=== PATIENT | female | born 1995 | race Caucasian/White ===

== ENCOUNTER 2024-02-19 10:36 | Inpatient (IN) | payer OTHER, SELFPAY ==
--- NOTE | ~2024-02-19 | US_ITS ---
EXAMINATION: US ABDOMEN LIMITED CLINICAL INFORMATION: Right upper quadrant pain with periportal edema seen on prior CT. COMPARISON: CT abdomen pelvis 02/19/2024: Periportal edema and trace of perihepatic ascites. Correlate with liver function tests. TECHNIQUE: Real-time imaging of the right upper quadrant abdominal viscera. FINDINGS: PANCREAS: The pancreas appears unremarkable, without masses or ductal dilatation, with the exception of the tail which is obscured by bowel gas. LIVER: The liver is normal in size. The liver contour is normal. Parenchymal echogenicity is normal. The periportal edema seen on the CT scan is not well appreciated on the ultrasound although a small amount can be seen centrally. There is no intrahepatic biliary duct dilatation seen. No focal hepatic lesion. GALLBLADDER: The gallbladder wall is thickened at 0.5 cm with fluid in the gallbladder wall and pericholecystic fluid present. Sanz's sign is positive. 2 gallbladder polyps are present the largest measuring 3 mm. No gallstones are seen. COMMON BILE DUCT: Normal in caliber measuring 0.2 cm in diameter. RIGHT KI FLAKITA: Normal. No hydronephrosis. No renal calculi or focal parenchymal lesions. The kidney measures 9.6 cm in maximum dimension. FREE FLUID: None. US/US abdomen limited IMPRESSION: 1. Gallbladder wall thickening with pericholecystic fluid and positive Sanz's sign. No gallstones are seen. Findings are suggestive of acalculous cholecystitis. HIDA scan may be of value. 2. Gallbladder polyps.
--- NOTE | ~2024-02-19 | CT_ITS ---
EXAMINATION: CT ABDOMEN AND PELVIS WITH CONTRAST CLINICAL INFORMATION: Abdominal pain, nausea vomiting and diarrhea, rectal bleeding. COMPARISON: None available. TECHNIQUE: Multidetector volumetric images were obtained from the superior aspect of the liver through the pubic symphysis following administration 85 mL of Omnipaque 350 intravenous contrast. Sagittal and coronal reformatted images were obtained on the technologist's workstation. Oral contrast: No This CT examination was performed using dose optimization techniques as appropriate, variously including the following: *Automated exposure control *Adjustment of mA and/or kV according to patient size (this includes techniques or standardized protocols for targeted exams where dose is matched to indication/reason for exam; i.e. extremities or head) *Use of iterative reconstruction technique DLP: 217 mGy-cm FINDINGS: LUNG BASES: The visualized lung bases are unremarkable. LIVER, GALLBLADDER, AND BILIARY TREE: There is periportal edema seen. There is no intrahepatic masses or ductal dilatation. There is trace of perihepatic ascites . The gallbladder is unremarkable there is trace of fluid surrounding the gallbladder as well. PANCREAS: Unremarkable. SPLEEN: There are subcapsular splenic low-attenuation lesions, possibly cysts. ADRENAL GLANDS: Unremarkable. KIDNEYS AND URETERS: The kidneys are normal in size, shape, and attenuation. No hydronephrosis, hydroureter, or calculi seen. No perinephric stranding. BLADDER: Unremarkable. GASTROINTESTINAL TRACT: Stomach is distended with no abnormal findings. Small bowel loops are not dilated. Colonic loops are normal. Appendix is not seen. ABDOMINAL WALL: No significant hernia is appreciated. LYMPH NODES: Normal. VASCULAR: Unremarkable. PELVIC VISCERA: Uterus is retroflexed there is IUD in the uterus. OSSEOUS STRUCTURES: Unremarkable. CT/CT abdomen pelvis w IV con IMPRESSION: 1. Periportal edema and trace of perihepatic ascites. Correlate with liver function tests. 2. Subcapsular splenic lesions, most likely cysts. Fleischner guidelines were followed.
[2024-02-19 10:46] VITALS: BP 129/82; PULSE 61; RESP 18; TEMP 36.5; O2SAT 100; BMI 17.0
[2024-02-19 10:58] LABS: Basophils Absolute Auto 0.1 X10*3/uL (0.0-0.2); Basophils Percent Auto 0.6 % (0-2); Eosinophils Percent Auto 0.1 % (0-4); Hematocrit 41.4 % (37.0-47.0); Hemoglobin 14.3 g/dl (12.0-16.0); Imm Gran Abs Auto 0.11 X10*3/uL (0.00-0.03); Imm Gran Pct Auto 0.6 % (0.0-0.4); Lymphocytes Absolute Auto 2.1 X10*3/uL (1.2-4.9); MANUAL DIFF FLAG NO; Mean Corpuscular HGB Conc 34.5 g/dl (31.0-35.0); Mean Corpuscular Hemoglobin 31.6 pg (27.0-33.0); Mean Corpuscular Volume 91.4 fL (80.0-98.0); Mean Platelet Volume 9.8 fL (9.4-12.3); Monocytes Absolute Auto 0.6 X10*3/uL (0.1-1.2); Monocytes Percent Auto 3.4 % (2-11); Neutrophils Absolute Auto 14.3 x10*3/uL (2.0-8.3); Neutrophils Percent Auto 83.3 % (45-73); Platelet Count 319 X10*3/uL (160-400); Red Blood Count 4.53 X10*6/uL (4.20-5.50); Red Cell Distribution Width 12.1 % (11.0-16.0); White Blood Count 17.2 X10*3/uL (4.8-10.8)
[2024-02-19 11:14] LABS: Alanine Aminotransferase 52 U/L (0-31); Albumin Level 4.9 g/dL (3.5-5.0); Alkaline Phosphatase 56 U/L (39-117); Anion Gap 16 (12-20); Aspartate Amino Transferase 36 U/L (5-31); Bilirubin Direct 0.4 mg/dL (0.0-0.5); Bilirubin Total 1.2 mg/dL (0.0-1.0); Blood Urea Nitrogen 11 mg/dL (9-16); Calcium 10.4 mg/dL (8.4-10.2); Carbon Dioxide 20 mmol/L (22-29); Chloride 107 mmol/L (96-108); Estimated Glomerular Filt Rate > 60; Glucose Random 126 mg/dL (60-115); Lipase 28 U/L (8-78); Potassium 3.2 mmol/L (3.3-5.1); Sodium 140 mmol/L (135-145); Total Protein 7.8 g/dL (6.5-8.0)
--- NOTE | 2024-02-19 11:43 | ED.NAVMDI ---
HPI - Nausea/Vomiting/Diarrhea General Chief complaint: Nausea/Vomiting/Diarrhea Stated complaint: vomiting quest alcohol poison Time Seen by Provider: 02/19/24 12:12 Source: patient, RN notes reviewed and old records reviewed Mode of arrival: ambulatory History of Present Illness ED Provider: Bridget Ricks PA-C HPI Narrative: 28-year-old female with no significant past medical history presenting to the ED complaining of upper abdominal pain, nausea, vomiting, and brbpr x this morning. Admits to drinking 2 alcoholic beverages last night, then woke up around 03:00AM with multiple episodes of vomiting. Denies fever, recent travel, sick contacts, dysuria/hematuria, other drug use MD elicited complaint: nausea, vomiting, diarrhea and abdominal pain Related Data Allergies Allergy/AdvReac Type Severity Reaction Status Date / Time No Known Allergies Allergy Verified 02/19/24 10:46 Review of Systems Review of Systems: Constitutional: No Fever, No Chills ENT/Mouth: No Ear Pain, No Nasal Congestion, No Sinus Pain, No Hoarseness, No sore throat, No Rhinorrhea, No Swallowing Difficulty Cardiovascular: No Chest Pain, No SOB Respiratory: No Cough, No Sputum, No Wheezing Gastrointestinal: + Nausea, + Vomiting, + Diarrhea, No Constipation, + Abdominal pain, +brbpr Genitourinary: No Dysuria, No Urinary Frequency, No Hematuria, No Flank Pain Musculoskeletal: No joint pain, No Myalgias, No Joint Swelling Skin: No Skin Lesions, No rash Neuro: No Weakness Yes all other systems are reviewed and are negative Constitutional: Constitutional: Reports as per [facility] Past Medical History Attestation statement: The following information was validated with the patient. Source: old records reviewed Social History Social History Smoked in Last 30 Days: No Use of substances other than those prescribed or required for medical reasons: Yes Substance Use Type: Marijuana Advance Directives: No Advance Directives Information Provided: No Physical Exam Vital Signs: Vital Signs: Last Vital Signs Temp 97.7 F 02/19/24 10:46 Pulse 61 02/19/24 10:46 Resp 18 02/19/24 10:46 BP 129/82 02/19/24 10:46 Pulse Ox 100 02/19/24 10:46 O2 Del Method Room Air 02/19/24 10:46 BMI result Body Mass Index 17.0 Const: Other: Appears uncomfortable General: cooperative and healthy appearing Orientation/consciousness: patient oriented x3 Limitations: no limitations HEENT: Head: Yes normal to inspection and Yes atraumatic Ears: hearing grossly normal bilaterally General nose exam: Normal external nose present Face and sinus: Yes normal facial exam Eyes: General: appearance normal, both eyes and all related structures EOM: EOMs intact bilaterally Neck: Neck: Yes normal visual inspection and Yes no meningeal signs Resp: Effort & Inspection: normal respiratory effort and no respiratory distress Auscultation: clear to auscultation bilaterally Cardio: Rate: regular rate Heart sounds: S1 normal heart sound present and S2 normal heart sound present GI: Inspection: Yes normal to inspection Palpation (GI): Soft to palpation, Tenderness to palpation present (GI) in the epigastrum; with no rebound tenderness, no guarding and not rigid Rectal Exam - Female: visual inspection normal : General: Yes no CVA tenderness Back/Spine/Pelvis: Back: no CVA tenderness Skin: Rashes: no rashes Wounds: no wounds Neuro: General: patient oriented x3, tone normal and no meningeal signs Cranial nerves: Yes CN's II-XII intact bilaterally Gait exam (Neuro): Normal gait present Extrem: General: Yes normal to inspection Course Course Course Narrative: This is a Rapid Medical Examination (RME) performed by Kristen Del Real PA-C in triage. Full HPI, ROS, assessment and treatment plan per primary provider in the Main ED. 28 y/o female with no medical history presents to the ER for evaluation of 10/10 diffuse upper abdominal pain associated with N/V that started at 2am. She drank 2 cocktails last night. Denies chance of , she has an IUD. She is in 10/10 pain and won't allow abd exam in triage. She is crying and in pain. Plan: labs, CT abd/pelvis, morphine and zofran ordered 1320--leukocytosis of 17.2 > likely reactive from nausea/vomiting. Still low suspicion for severe sepsis. > will obtain lactic and cultures -potassium mildly low to 3.2 > p.o. repletion ordered. AST/ALT mildly elevated. Labs otherwise reassuring. Ethanol negative -1508--UA negative, 40 ketones. Occult stool negative -lactic acid WNL CT abdomen pelvis w IV con IMPRESSION: 1. Periportal edema and trace of perihepatic ascites. Correlate with liver function tests. 2. Subcapsular splenic lesions, most likely cysts. Fleischner guidelines were followed. > 1600--on re-evaluation patient reports continued discomfort, slightly improved. On re-evaluation abdomen soft with continued epigastric/RUQ tenderness > will obtain ultrasound for further evaluation, give additional IVF and pain control 185--US abdomen limited IMPRESSION: 1. Gallbladder wall thickening with pericholecystic fluid and positive Sanz's sign. No gallstones are seen. Findings are suggestive of acalculous cholecystitis. HIDA scan may be of value. 2. Gallbladder polyps. > infection now suspected. IV Zosyn ordered. Will consult General surgery, Dr. Moore >plan is for admission. Medications Administered Discontinued Medications Generic Name Dose Route Start Last Admin Trade Name Freq PRN Reason Stop Dose Admin Al Hydroxide/Mg Hydroxide 30 ml 02/19/24 13:22 02/19/24 13:33 Magnesium Hydrox/Alum Hydrox 30 Ml Oral.Susp PO 02/19/24 13:23 30 ml ONCE ONE Administration Famotidine 20 mg 02/19/24 13:22 02/19/24 13:36 Famotidine/Pf 20 Mg/2 Ml Vial IVPUSH 02/19/24 13:23 20 mg ONCE ONE Administration Sodium Chloride 1,000 mls @ 999 mls/hr 02/19/24 12:00 02/19/24 12:57 Ns IVCONT 02/19/24 13:00 Infused .Q1H1M EBONY Infusion Sodium Chloride 1,000 mls @ 999 mls/hr 02/19/24 12:30 02/19/24 14:35 Ns IV 02/19/24 13:30 Infused .Q1H1M EBONY Infusion Sodium Chloride 1,000 mls @ 999 mls/hr 02/19/24 16:15 02/19/24 19:05 Ns IV 02/19/24 17:15 Infused .Q1H1M EBONY Infusion Iohexol 100 ml 02/19/24 12:49 02/19/24 12:50 Iohexol 350 Mg/Ml 100 Ml Infus..Btl IV 02/19/24 12:50 85 ml ONCE ONE Administration Lidocaine HCl 15 ml 02/19/24 13:22 02/19/24 13:33 Lidocaine Hcl Viscous 2 % 15 Ml Solution MUCOUS MEM 02/19/24 13:23 15 ml ONCE ONE Administration Lidocaine HCl 15 ml 02/19/24 17:37 02/19/24 18:06 Lidocaine Hcl Viscous 2 % 15 Ml Solution MUCOUS MEM 02/19/24 17:38 15 ml ONCE ONE Administration Metoclopramide HCl 10 mg 02/19/24 16:02 02/19/24 16:23 Metoclopramide Hcl 10 Mg/2 Ml Vial IVPUSH 02/19/24 16:03 10 mg ONCE ONE Administration Morphine Sulfate 4 mg 02/19/24 11:46 02/19/24 12:04 Morphine Sulfate 4 Mg/Ml Cartridge IVPUSH 02/19/24 11:47 4 mg ONCE ONE Administration Protocol Morphine Sulfate 2 mg 02/19/24 12:29 02/19/24 12:43 Morphine Sulfate 2 Mg/Ml Cartridge IVPUSH 02/19/24 12:30 2 mg ONCE ONE Administration Protocol Ondansetron HCl 4 mg 02/19/24 11:46 02/19/24 12:04 Ondansetron Hcl 4 Mg/2 Ml Vial IVPUSH 02/19/24 11:47 4 mg ONCE ONE Administration Potassium Chloride 60 meq 02/19/24 12:19 02/19/24 12:58 Potassium Chloride Er 20 Meq Tab.Er.Prt PO 02/19/24 12:20 60 meq ONCE ONE Administration Medical Decision Making Medical Decision Making [facility] Narrative: 28-year-old female with no significant past medical history presenting to the ED complaining of upper abdominal pain, nausea, vomiting, and brbpr x this morning. On exam VSS, NAD, appears uncomfortable, abdomen soft with epigastric tenderness, rectal exam WNL. Concern for pancreatitis vs cholecystitis/lithiasis vs alcohol poisoning vs metabolic abnormalities. Lower suspicion for [place] hives, appendicitis/diverticulitis, ovarian torsion. Low suspicion for severe sepsis at this time Plan: Labs, UA, CT AP, IVF, antiemetics, pain control, re-evaluate. Please refer to course for remaining clinical decision making, interpretation of labs/imaging results, and discussions with consultants and/or family members. Differential Diagnosis Differential Diagnoses: The differential diagnosis associated with the presentation includes As above Admission/Observation Consideration of admission/observation: Escalation of care including admission/observation considered Lab Data [facility] Lab Attestation statement: I reviewed the patient's lab results. 02/19/24 10:53 02/19/24 10:53 Labs: Lab Results 02/19/24 02/19/24 02/19/24 Range/Units 10:53 13:48 14:30 WBC 17.2 H (4.8-10.8) X10*3/uL RBC 4.53 (4.20-5.50) X10*6/uL Hgb 14.3 (12.0-16.0) g/dl Hct 41.4 (37.0-47.0) % MCV 91.4 (80.0-98.0) fL MCH 31.6 (27.0-33.0) pg MCHC 34.5 (31.0-35.0) g/dl RDW 12.1 (11.0-16.0) % Plt Count 319 (160-400) X10*3/uL MPV 9.8 (9.4-12.3) fL Immature Gran % (Auto) 0.6 H (0.0-0.4) % Neut % (Auto) 83.3 H (45-73) % Lymph % (Auto) 12.0 L (20-40) % [place] % (Auto) 3.4 (2-11) % Eos % (Auto) 0.1 (0-4) % Baso % (Auto) 0.6 (0-2) % Lymph # (Auto) 2.1 (1.2-4.9) X10*3/uL [place] # (Auto) 0.6 (0.1-1.2) X10*3/uL Eos # (Auto) 0.0 (0.0-0.4) X10*3/uL Baso # (Auto) 0.1 (0.0-0.2) X10*3/uL Abs Immat Gran (auto) 0.11 H (0.00-0.03) X10*3/uL Absolute Neuts (auto) 14.3 H (2.0-8.3) x10*3/uL Absolute Nucleated RBC 0.000 (0.0-0.012) X10*3/uL Nucleated RBC % (auto) 0.0 (0.0-0.2) /100WBC Sodium 140 (135-145) mmol/L Potassium 3.2 L (3.3-5.1) mmol/L Chloride 107 (96-108) mmol/L Carbon Dioxide 20 L (22-29) mmol/L Anion Gap 16 (12-20) BUN 11 (9-16) mg/dL Creatinine 0.81 (0.5-1.4) mg/dL Estim Creat Clear Calc 61.0 Estimated GFR > 60 Random Glucose 126 H (60-115) mg/dL Lactic Acid (0.5-2.0) mmol/L Calcium 10.4 H (8.4-10.2) mg/dL Magnesium 1.9 (1.6-2.6) mg/dL Total Bilirubin 1.2 H (0.0-1.0) mg/dL Direct Bilirubin 0.4 (0.0-0.5) mg/dL AST 36 H (5-31) U/L ALT 52 H (0-31) U/L Alkaline Phosphatase 56 (39-117) U/L Total Protein 7.8 (6.5-8.0) g/dL Albumin 4.9 (3.5-5.0) g/dL Lipase 28 (8-78) U/L Beta HCG, Quant < 2 mIU/mL Urine Color Urine Appearance Urine pH (5.0-9.0) Ur Specific [place] (1.005-1.025) Urine Protein (Neg-Trace) mg/dL Urine Glucose (UA) (Negative) mg/dL Urine Ketones (Negative) mg/dL Urine Blood (Negative) Urine Nitrite (Negative) Ur Leukocyte Esterase (Negative) Urine Test NEGATIVE (NEGATIVE) Stool Occult Blood NEGATIVE (NEGATIVE) Urine Opiates Screen POSITIVE H (Not Detect) Ur Buprenorphine Scrn Not Detected (Not Detect) ng/mL Ur Oxycodone Screen Not Detected (Not Detect) ng/mL Urine Methadone Screen Not Detected (Not Detect) ng/mL Urine Fentanyl Screen Not Detected (Not Detect) Ur Barbiturates Screen Not Detected (Not Detect) Ur Phencyclidine Scrn Not Detected (Not Detect) Ur Amphetamines Screen Not Detected (Not Detect) U Benzodiazepines Scrn Not Detected (Not Detect) Urine Cocaine Screen Not Detected (Not Detect) U Marijuana (THC) Screen POSITIVE H (Not Detect) Ethyl Alcohol < 10 mg/dL 02/19/24 02/19/24 Range/Units 14:32 15:00 WBC (4.8-10.8) X10*3/uL RBC (4.20-5.50) X10*6/uL Hgb (12.0-16.0) g/dl Hct (37.0-47.0) % MCV (80.0-98.0) fL MCH (27.0-33.0) pg MCHC (31.0-35.0) g/dl RDW (11.0-16.0) % Plt Count (160-400) X10*3/uL MPV (9.4-12.3) fL Immature Gran % (Auto) (0.0-0.4) % Neut % (Auto) (45-73) % Lymph % (Auto) (20-40) % [place] % (Auto) (2-11) % Eos % (Auto) (0-4) % Baso % (Auto) (0-2) % Lymph # (Auto) (1.2-4.9) X10*3/uL [place] # (Auto) (0.1-1.2) X10*3/uL Eos # (Auto) (0.0-0.4) X10*3/uL Baso # (Auto) (0.0-0.2) X10*3/uL Abs Immat Gran (auto) (0.00-0.03) X10*3/uL Absolute Neuts (auto) (2.0-8.3) x10*3/uL Absolute Nucleated RBC (0.0-0.012) X10*3/uL Nucleated RBC % (auto) (0.0-0.2) /100WBC Sodium (135-145) mmol/L Potassium (3.3-5.1) mmol/L Chloride (96-108) mmol/L Carbon Dioxide (22-29) mmol/L Anion Gap (12-20) BUN (9-16) mg/dL Creatinine (0.5-1.4) mg/dL Estim Creat Clear Calc Estimated GFR Random Glucose (60-115) mg/dL Lactic Acid 1.7 (0.5-2.0) mmol/L Calcium (8.4-10.2) mg/dL Magnesium (1.6-2.6) mg/dL Total Bilirubin (0.0-1.0) mg/dL Direct Bilirubin (0.0-0.5) mg/dL AST (5-31) U/L ALT (0-31) U/L Alkaline Phosphatase (39-117) U/L Total Protein (6.5-8.0) g/dL Albumin (3.5-5.0) g/dL Lipase (8-78) U/L Beta HCG, Quant mIU/mL Urine Color Yellow Urine Appearance Clear Urine pH 8.0 (5.0-9.0) Ur Specific [place] >= 1.030 H (1.005-1.025) Urine Protein Negative (Neg-Trace) mg/dL Urine Glucose (UA) Negative (Negative) mg/dL Urine Ketones 40 (Negative) mg/dL Urine Blood Negative (Negative) Urine Nitrite Negative (Negative) Ur Leukocyte Esterase Negative (Negative) Urine Test (NEGATIVE) Stool Occult Blood (NEGATIVE) Urine Opiates Screen (Not Detect) Ur Buprenorphine Scrn (Not Detect) ng/mL Ur Oxycodone Screen (Not Detect) ng/mL Urine Methadone Screen (Not Detect) ng/mL Urine Fentanyl Screen (Not Detect) Ur Barbiturates Screen (Not Detect) Ur Phencyclidine Scrn (Not Detect) Ur Amphetamines Screen (Not Detect) U Benzodiazepines Scrn (Not Detect) Urine Cocaine Screen (Not Detect) U Marijuana (THC) Screen (Not Detect) Ethyl Alcohol mg/dL Independent Interpretation I performed an independent interpretation of an: CT Scan Radiology Impression Discussion of test interpretation with radiology: I have reviewed the radiologist's reading. Independent Historian Clinical information obtained from an independent historian. History obtained from or confirmed by: Spouse External Record Review External record reviewed: Inpatient record, Office record, Outpatient record, Prior outpatient labs, Prior outpatient radiology, Primary care record and Outside ED record Tests considered The following testing was considered but not selected: As above Prescription Management I considered prescription management with: Pain Medication Critical Care Time Critical Care Time Critical Care Time: Yes Total Critical Care Time: 60 Attestation: I have personally provided critical care time exclusive of time spent on separately billable procedures. Time includes review of lab data, radiology results, discussion with consultants, and monitoring for potential decompensation. Intervention performed as documented. Discharge Plan Discharge Clinical Impression: Acute acalculous cholecystitis Patient Disposition: Admitted As Inpatient Print Language: Macedonian
[2024-02-19] MEDS: ondansetron HCL 4 MG/2 ML VIAL IVPUSH (12:04)
[2024-02-19] MEDS: Morphine Sulfate 4 MG/ML CARTRIDGE IVPUSH (12:04)
[2024-02-19] MEDS: 0.9 % Sodium Chloride 1,000 ML 999 ML IVCONT (12:04)
[2024-02-19 12:19] LABS: HCG Quantitative < 2 mIU/mL
[2024-02-19] MEDS: Morphine Sulfate 2 MG/ML CARTRIDGE IVPUSH (12:43)
[2024-02-19 12:48] LABS: Ethanol < 10 mg/dL; Magnesium 1.9 mg/dL (1.6-2.6)
[2024-02-19] MEDS: iohexoL 350 MG/ML 100 ML INFUS..BTL IV (12:50)
[2024-02-19] MEDS: Potassium Chloride ER 20 MEQ TAB.ER.PRT 60 MEQ PO (12:58)
[2024-02-19] MEDS: 0.9 % Sodium Chloride 1,000 ML 999 ML IV ×2 (12:59→16:20)
[2024-02-19] MEDS: Magnesium Hydrox/Alum Hydrox 30 ML ORAL.SUSP PO (13:33)
[2024-02-19] MEDS: Lidocaine HCl Viscous 2 % 15 ML SOLUTION MUCOUS MEM ×2 (13:33→18:06)
[2024-02-19] MEDS: Famotidine/PF 20 MG/2 ML VIAL IVPUSH (13:36)
[2024-02-19 13:57] LABS: OBS Int Ctl Valid YES; OBS1 NEGATIVE (NEGATIVE)
[2024-02-19 14:41] LABS: Appearance Urine Clear; Color Urine Yellow; Glucose Urine UA Negative (Negative); Leukocyte Esterase Urine Negative (Negative); Nitrite Urine Negative (Negative); Specific Gravity - Urine >= 1.030 (1.005-1.025); Urine Blood Negative (Negative); Urine Ketones 40 mg/dL (Negative); Urine Protein Negative (Neg-Trace)
[2024-02-19 14:43] LABS: UPreg QC Valid YES; Urine Pregnancy NEGATIVE (NEGATIVE)
[2024-02-19 15:22] LABS: Lactic Acid 1.7 mmol/L (0.5-2.0)
[2024-02-19 16:19] LABS: Amphetamine Screen Urine Not Detected (Not Detect); Barbiturates, Urine Not Detected (Not Detect); Benzodiazepines Screen Urine Not Detected (Not Detect); Buprenorphine Scr Not Detected (Not Detect); Cannabinoid Screen Urine POSITIVE (Not Detect); Cocaine Screen Urine Not Detected (Not Detect); Fentanyl, urine Not Detected (Not Detect); Methadone Screen, Urine Not Detected (Not Detect); Opiate Screen Urine POSITIVE (Not Detect); Oxycodone Screen Urine Not Detected (Not Detect); Phencyclidine Screen Urine Not Detected (Not Detect)
[2024-02-19] MEDS: Metoclopramide HCl 10 MG/2 ML VIAL IVPUSH (16:23)
--- NOTE | 2024-02-19 17:17 | PC.NURSE ---
third liter of fluids has infused. ultrasound at bedside
--- NOTE | 2024-02-19 19:04 | PC.NURSE ---
assumed care of pt at 1900
--- NOTE | 2024-02-19 19:08 | P.HPGS_ITS ---
History of Present Illness History of Present Illness Date of Service: 02/20/24 Chief complaint: abdominal pain Narrative: Ruba De La Cruz is a 28 year old female who comes into the emergency room complaining of epigastric pain severe and nausea and vomiting. She has never had pain like this before. Here in the emergency room she was noted to have right upper quadrant tenderness and ultrasound and a CT scan was carried out which shows thickening of the gallbladder wall some pericholecystic fluid [place] [address] and some LFTs are slightly elevated. No stones are noted however gall bladder polyps are seen. She denies any family history of gallbladder disease that she is aware of. She denies eating anything unusual and no other sick contacts Review of Systems Review of Systems: Yes all other systems are reviewed and are negative [facility] Social History Social History Patient Tobacco Use Status: Former Tobacco user Smoked in Last 30 Days: No Use of substances other than those prescribed or required for medical reasons: Yes Substance Use Type: Marijuana Advance Directives: No Advance Directives Information Provided: No Do you have a plan to hurt others: No Plan Nutrition Risks: No Nutritional Risk Meds Allergies Allergy/AdvReac Type Severity Reaction Status Date / Time No Known Allergies Allergy Verified 02/19/24 10:46 Active Medications: Current Medications Piperacillin Sod/Tazobactam (Sod 4.5 gm/ Sodium Chloride) 100 mls @ 200 mls/hr IV ONCE ONE Stop: 02/19/24 19:20 Home Medications ?Medication ?Instructions ?Recorded ?Confirmed ?Last Taken ?Type cholecalciferol (vitamin D3) 50 50 mcg PO DAILY 02/19/24 02/19/24 Unknown History mcg (2,000 unit) capsule Physical Exam Vital Signs: Vital Signs: Last Vital Signs Temp 97.7 F 02/19/24 10:46 Pulse 61 02/19/24 10:46 Resp 18 02/19/24 10:46 BP 129/82 02/19/24 10:46 Pulse Ox 100 02/19/24 10:46 O2 Del Method Room Air 02/19/24 10:46 BMI result Body Mass Index 17.0 Const: General: cooperative, healthy appearing, comfortable and acute distress mild Orientation/consciousness: patient oriented x3 Resp: Effort & Inspection: normal respiratory effort Auscultation: clear to auscultation bilaterally Cardio: Rate: regular rate Rhythm: regular rhythm Skin: Other: Nonicteric Neuro: General: patient oriented x3 Extrem: General: Yes normal to inspection Psych: Appearance: grossly normal Mental Status: mental status grossly normal Speech and movement: Normal speech and movement present Affect: normal affect Attitude: cooperative Thought process: Normal thought process present Thought content: Normal thought content present Insight: Good insight present (Psych) Judgement: Good judgement present (Psych) Results Results Labs: Short CBC 02/19/24 Range/Units 10:53 WBC 17.2 H (4.8-10.8) X10*3/uL Hgb 14.3 (12.0-16.0) g/dl Hct 41.4 (37.0-47.0) % Plt Count 319 (160-400) X10*3/uL BMP 02/19/24 10:53 Sodium 140 Potassium 3.2 L Chloride 107 Carbon Dioxide 20 L BUN 11 Creatinine 0.81 Calcium 10.4 H Liver Function 02/19/24 Range/Units 10:53 Total Bilirubin 1.2 H (0.0-1.0) mg/dL Direct Bilirubin 0.4 (0.0-0.5) mg/dL AST 36 H (5-31) U/L ALT 52 H (0-31) U/L Alkaline Phosphatase 56 (39-117) U/L Albumin 4.9 (3.5-5.0) g/dL Urine 02/19/24 02/19/24 Range/Units 14:30 14:32 Urine Color Yellow Urine Appearance Clear Urine pH 8.0 (5.0-9.0) Ur Specific [place] >= 1.030 H (1.005-1.025) Urine Protein Negative (Neg-Trace) mg/dL Urine Glucose (UA) Negative (Negative) mg/dL Urine Test NEGATIVE (NEGATIVE) Abdomen CT scan report/results: report reviewed and image reviewed CT scan - pelvis: report reviewed and image reviewed US - pelvic: report reviewed Additional studies: [address] [address] Ultrasound Report Signed Patient: Ruba De La Cruz MR#: [id number] : 1995 Acct:[id number] Age/Sex: 28 / F ADM Date: 02/19/24 Loc: HO.ED Attending Dr: Ordering Physician: Bridget Ricks Date of Service: 02/19/24 Procedure(s): US abdomen limited Accession Number(s): [id number] cc: Physician,None ; Bridget Ricks~ EXAMINATION: US ABDOMEN LIMITED CLINICAL INFORMATION: Right upper quadrant pain with periportal edema seen on prior CT. COMPARISON: CT abdomen pelvis 02/19/2024: Periportal edema and trace of perihepatic ascites. Correlate with liver function tests. TECHNIQUE: Real-time imaging of the right upper quadrant abdominal viscera. FINDINGS: PANCREAS: The pancreas appears unremarkable, without masses or ductal dilatation, with the exception of the tail which is obscured by bowel gas. LIVER: The liver is normal in size. The liver contour is normal. Parenchymal echogenicity is normal. The periportal edema seen on the CT scan is not well appreciated on the ultrasound although a small amount can be seen centrally. There is no intrahepatic biliary duct dilatation seen. No focal hepatic lesion. GALLBLADDER: The gallbladder wall is thickened at 0.5 cm with fluid in the gallbladder wall and pericholecystic fluid present. Sanz's sign is positive. 2 gallbladder polyps are present the largest measuring 3 mm. No gallstones are seen. COMMON BILE DUCT: Normal in caliber measuring 0.2 cm in diameter. RIGHT KI FLAKITA: Normal. No hydronephrosis. No renal calculi or focal parenchymal lesions. The kidney measures 9.6 cm in maximum dimension. FREE FLUID: None. US/US abdomen limited IMPRESSION: 1. Gallbladder wall thickening with pericholecystic fluid and positive Sanz's sign. No gallstones are seen. Findings are suggestive of acalculous cholecystitis. HIDA scan may be of value. 2. Gallbladder polyps. Dictated By: Girish Silva MD Signed By: <Electronically signed by Girish Silva MD in OV> 02/19/24 1840 Assessment and Plan (1) Acute acalculous cholecystitis: Status: Acute Plan 28-year-old female with epigastric right upper quadrant pain most likely with acalculous cholecystitis. Elevated white count. Plan to admit IV antibiotics and see how she does tomorrow. Repeat labs. She is saying however that she felt terrible and she never wants to feel like this again and is more adamant to get her gallbladder out during this admission. I think that this is reasonable but at this point plan to resuscitate correct her potassium and re-evaluate in the morning. She understands and agrees with the above plan Total time managing care of this patient today: 50 minutes. Quality Stroke Does the patient have a stroke diagnosis?: No VTE Prior VTE?: No VTE Risk Level:: Surgical - low VTE Device Contraindication: N/A - Device Ordered VTE Drug Contraindication: Treatment Not Indicated Procedures Date of Service Date of Service: 02/20/24
[2024-02-19] MEDS: Piperacillin Sodium/Tazobactam 3.375 GM in 0.9 % Sodium Chloride 50 ML IV (19:27)
[2024-02-19 19:31] VITALS: BP 114/68; PULSE 81; RESP 17; TEMP 37.4; O2SAT 97
--- NOTE | 2024-02-19 19:36 | PHA.MEDREC ---
Pharmacy Consult ? Medication Reconciliation Pharmacy has completed the medication reconciliation. Spoke to nursing who sent me pictures of OTC products the patient takes. Pt reports no prescription medications. Pt buys brand Hum vitamins ( [employer] probiotic, Here Comes the Sun vitamin D, [employer]ill herbal, and hormone Balance herbal) with various herbal supplements not able to be entered into medication summary except for vitamin D3. Pt aware that she would need to bring in in order to continue products in house.
[2024-02-19] MEDS: Potassium Chloride Packet 20 MEQ PACKET 40 MEQ PO (20:00)
[2024-02-19] MEDS: Lactated Ringers 1,000 ML 100 ML IVCONT (20:01)
[2024-02-19 22:11] VITALS: BP 110/66; PULSE 80; RESP 17; TEMP 37.2; O2SAT 97
[2024-02-20] VITALS (10 sets, daily range): BP systolic 101–137; BP diastolic 57–86; PULSE 65–80; RESP 16–18; TEMP 36.1–36.9; O2SAT 97–100; BMI 16.6
--- NOTE | 2024-02-20 01:23 | PC.NURSE ---
pt ambulatory to and from bathroom with a steady gait.
[2024-02-20] MEDS: Piperacillin Sodium/Tazobactam 3.375 GM in 0.9 % Sodium Chloride 50 ML IV ×3 (02:37→14:21)
[2024-02-20] MEDS: Lactated Ringers 1,000 ML 100 ML IVCONT (05:49)
[2024-02-20] MEDS: Ketorolac Tromethamine 30 MG/ML VIAL 15 MG IVPUSH (08:24)
--- NOTE | 2024-02-20 09:50 | PC.NURSE ---
patient is alert and oriented x3, family at [facility], patient medicated per MAR. VSS, respirations equal and unlabored, skin dry and intact. patient is receiving 100ml / hr LR. currently NPO awaiting surg consult
[2024-02-20 11:00] LABS: MANUAL DIFF FLAG NO
[2024-02-20 11:01] LABS: Basophils Absolute Auto 0.1 X10*3/uL (0.0-0.2); Basophils Percent Auto 0.5 % (0-2); Eosinophils Percent Auto 0.1 % (0-4); Hematocrit 33.4 % (37.0-47.0); Hemoglobin 11.7 g/dl (12.0-16.0); Imm Gran Abs Auto 0.04 X10*3/uL (0.00-0.03); Imm Gran Pct Auto 0.3 % (0.0-0.4); Lymphocytes Absolute Auto 2.3 X10*3/uL (1.2-4.9); Lymphocytes Percent Auto 19.1 % (20-40); Mean Corpuscular Hemoglobin 32.7 pg (27.0-33.0); Mean Corpuscular Volume 93.3 fL (80.0-98.0); Mean Platelet Volume 9.7 fL (9.4-12.3); Monocytes Absolute Auto 1.1 X10*3/uL (0.1-1.2); Monocytes Percent Auto 8.7 % (2-11); Neutrophils Absolute Auto 8.7 x10*3/uL (2.0-8.3); Neutrophils Percent Auto 71.3 % (45-73); Platelet Count 219 X10*3/uL (160-400); Red Blood Count 3.58 X10*6/uL (4.20-5.50); Red Cell Distribution Width 12.4 % (11.0-16.0); White Blood Count 12.2 X10*3/uL (4.8-10.8)
[2024-02-20 11:28] LABS: Alanine Aminotransferase 42 U/L (0-31); Albumin Level 3.6 g/dL (3.5-5.0); Alkaline Phosphatase 38 U/L (39-117); Anion Gap 12 (12-20); Aspartate Amino Transferase 29 U/L (5-31); Bilirubin Total 2.3 mg/dL (0.0-1.0); Blood Urea Nitrogen 8 mg/dL (9-16); Calcium 8.8 mg/dL (8.4-10.2); Carbon Dioxide 22 mmol/L (22-29); Chloride 110 mmol/L (96-108); Creatinine Clr Calc Pharmacy 66.8; Estimated Glomerular Filt Rate > 60; Glucose Random 76 mg/dL (60-115); Potassium 3.6 mmol/L (3.3-5.1); Sodium 140 mmol/L (135-145); Total Protein 5.7 g/dL (6.5-8.0)
--- NOTE | 2024-02-20 12:20 | PM.PNGS ---
Subjective Subjective Date of Service: 02/20/24 Interval history: Patient feeling better but still some soreness in the epigastric area she has been NPO. She is stating that she is concerned that she has not been able to eat before and that she felt sick and she has been having issues with her weight so she really wants to be able to eat and gain some weight. She is determined to have the surgery today Physical Exam Vital Signs: Vital Signs: Last Vital Signs Temp 98.5 F 02/20/24 07:25 Pulse 67 02/20/24 07:25 Resp 16 02/20/24 07:25 BP 106/60 02/20/24 07:25 Pulse Ox 99 02/20/24 07:25 O2 Del Method Room Air 02/20/24 07:25 BMI result Body Mass Index 17.0 Const: General: cooperative, healthy appearing and comfortable Resp: Effort & Inspection: normal respiratory effort Auscultation: clear to auscultation bilaterally Cardio: Rate: regular rate Rhythm: regular rhythm GI: Other: Abdomen is soft nondistended mild tenderness in the epigastric area no CVA tenderness mild guarding no rebound no peritoneal signs Skin: Other: Nonicteric Objective Data Active Medications Piperacillin Sod/Tazobactam (Sod 3.375 gm/ Sodium Chloride) 50 mls @ 100 mls/hr IV Q6H [facility] Last Infusion: 02/20/24 08:26 Dose: Infused Documented By: SAMANTHA Lactated Ringer's (Lr) 1,000 mls @ 100 mls/hr IVCONT .Q10H [facility] Last Admin: 02/20/24 05:49 Dose: 100 mls/hr Documented By: KATHE Ketorolac Tromethamine (Ketorolac Tromethamine 30 Mg/Ml Vial) 15 mg IVPUSH Q6H PRN PRN Reason: Pain, Moderate(Pain Scale 4-6) Stop: 02/24/24 19:02 Last Admin: 02/20/24 08:24 Dose: 15 mg Documented By: SAMANTHA Morphine Sulfate (Morphine Sulfate 4 Mg/Ml Cartridge) 3 mg IVPUSH Q4H PRN; Protocol PRN Reason: Pain, Severe (Pain Scale 7-10) Ondansetron HCl (Ondansetron Hcl 4 Mg/2 Ml Vial) 4 mg IVPUSH Q8H PRN PRN Reason: Nausea and Vomiting Sodium Chloride (0.9 % Sodium Chloride Flush 3 Ml Syringe) 3 ml IVFLUSH QSHIFT EBONY Last Admin: 02/20/24 07:46 Dose: Not Given Documented By: SAMANTHA Non-Admin Reason: IV Running Labs 02/20/24 10:56 02/20/24 10:56 Labs: Laboratory Results - last 24 hr 02/19/24 02/19/24 02/19/24 10:53 13:48 14:30 MCV MCH MCHC RDW Plt Count MPV Immature Gran % (Auto) Neut % (Auto) Lymph % (Auto) [place] % (Auto) Eos % (Auto) Baso % (Auto) Lymph # (Auto) [place] # (Auto) Eos # (Auto) Baso # (Auto) Abs Immat Gran (auto) Absolute Neuts (auto) Absolute Nucleated RBC Nucleated RBC % (auto) Anion Gap Estim Creat Clear Calc Estimated GFR Random Glucose Lactic Acid Calcium Magnesium 1.9 Total Bilirubin AST ALT Alkaline Phosphatase Total Protein Albumin Beta HCG, Quant < 2 Urine Color Urine Appearance Urine pH Ur Specific [place] Urine Protein Urine Glucose (UA) Urine Ketones Urine Blood Urine Nitrite Ur Leukocyte Esterase Urine Test NEGATIVE Stool Occult Blood NEGATIVE Urine Opiates Screen POSITIVE H Ur Buprenorphine Scrn Not Detected Ur Oxycodone Screen Not Detected Urine Methadone Screen Not Detected Urine Fentanyl Screen Not Detected Ur Barbiturates Screen Not Detected Ur Phencyclidine Scrn Not Detected Ur Amphetamines Screen Not Detected U Benzodiazepines Scrn Not Detected Urine Cocaine Screen Not Detected U Marijuana (THC) Screen POSITIVE H Ethyl Alcohol < 10 02/19/24 02/19/24 02/20/24 14:32 15:00 10:56 MCV 93.3 MCH 32.7 MCHC 35.0 RDW 12.4 Plt Count 219 D MPV 9.7 Immature Gran % (Auto) 0.3 Neut % (Auto) 71.3 Lymph % (Auto) 19.1 L [place] % (Auto) 8.7 Eos % (Auto) 0.1 Baso % (Auto) 0.5 Lymph # (Auto) 2.3 [place] # (Auto) 1.1 Eos # (Auto) 0.0 Baso # (Auto) 0.1 Abs Immat Gran (auto) 0.04 H Absolute Neuts (auto) 8.7 H Absolute Nucleated RBC 0.000 Nucleated RBC % (auto) 0.0 Anion Gap 12 Estim Creat Clear Calc 66.8 Estimated GFR > 60 Random Glucose 76 Lactic Acid 1.7 Calcium 8.8 D Magnesium Total Bilirubin 2.3 H AST 29 ALT 42 H Alkaline Phosphatase 38 L Total Protein 5.7 L Albumin 3.6 Beta HCG, Quant Urine Color Yellow Urine Appearance Clear Urine pH 8.0 Ur Specific [place] >= 1.030 H Urine Protein Negative Urine Glucose (UA) Negative Urine Ketones 40 Urine Blood Negative Urine Nitrite Negative Ur Leukocyte Esterase Negative Urine Test Stool Occult Blood Urine Opiates Screen Ur Buprenorphine Scrn Ur Oxycodone Screen Urine Methadone Screen Urine Fentanyl Screen Ur Barbiturates Screen Ur Phencyclidine Scrn Ur Amphetamines Screen U Benzodiazepines Scrn Urine Cocaine Screen U Marijuana (THC) Screen Ethyl Alcohol Procedures Date of Service Date of Service: 02/20/24 Progress Note: A&P Assessment and plan (1) Acute acalculous cholecystitis: Status: Acute Plan 28-year-old female with acute cholecystitis plan for laparoscopic cholecystectomy. Risks and benefits were discussed with the patient including but not limited to bleeding infection possible bowel injury possible common bile duct injury possible bile duct leak possible open procedure. She wishes to proceed. Time Spent With Patient Time: Total time managing care of this patient today ____ minutes. Quality Stroke Does the patient have a stroke diagnosis?: No VTE Prior VTE?: No VTE Risk Level:: Surgical - low VTE Device Contraindication: N/A - Device Ordered VTE Drug Contraindication: Treatment Not Indicated
--- NOTE | 2024-02-20 13:27 | MHC.CM.PN ---
Patient lives in a home w/ . Functionally independent. Denies use of DME or services. Does not have a PCP. [facility] brochure provided. Patient will schedule appt with new PCP after dc. Completed HCP naming agents 1) spouse Ankur Alcantar [phone], 2) mother Mackenzie Villa [phone] DP: Scheduled for OR today. Do not anticipate the need for services on dc. Home self care, to transport. CM will continue to follow.
--- NOTE | 2024-02-20 13:56 | HO.ANESPROP2 ---
HPI - Anesthesia Eval Consult details Narrative: Acute Cholecystitis PMFSH Active Problems Active Problems: All Active Problems Acute acalculous cholecystitis (Acute) Family History Family history of problems with anesthesia: No Surgical History History of Problems with Anesthesia: No Social History Social History Household Members: Spouse Housing: House Do you presently have visiting nurse or other home services: No Patient Tobacco Use Status: Former Tobacco user Smoked in Last 30 Days: No Use of substances other than those prescribed or required for medical reasons: No Substance Use Type: Marijuana Do you feel safe in your current relationship?: Yes Advance Directives: No Advance Directives Information Provided: No Do you have a plan to hurt others: No Plan Recently lost weight without trying: No Nutrition Risks: No Nutritional Risk Patient : No : No Poor oral hygiene: No service: No Meds Allergies Allergy/AdvReac Type Severity Reaction Status Date / Time No Known Allergies Allergy Verified 02/19/24 10:46 Active Medications: Current Medications Piperacillin Sod/Tazobactam (Sod 3.375 gm/ Sodium Chloride) 50 mls @ 100 mls/hr IV Q6H [facility] Last Infusion: 02/20/24 08:26 Dose: Infused Lactated Ringer's (Lr) 1,000 mls @ 100 mls/hr IVCONT .Q10H [facility] Last Admin: 02/20/24 05:49 Dose: 100 mls/hr Ketorolac Tromethamine (Ketorolac Tromethamine 30 Mg/Ml Vial) 15 mg IVPUSH Q6H PRN PRN Reason: Pain, Moderate(Pain Scale 4-6) Stop: 02/24/24 19:02 Last Admin: 02/20/24 08:24 Dose: 15 mg Morphine Sulfate (Morphine Sulfate 4 Mg/Ml Cartridge) 3 mg IVPUSH Q4H PRN; Protocol PRN Reason: Pain, Severe (Pain Scale 7-10) Ondansetron HCl (Ondansetron Hcl 4 Mg/2 Ml Vial) 4 mg IVPUSH Q8H PRN PRN Reason: Nausea and Vomiting Sodium Chloride (0.9 % Sodium Chloride Flush 3 Ml Syringe) 3 ml IVFLUSH QSHIFT [facility] Last Admin: 02/20/24 07:46 Dose: Not Given Home Medications ?Medication ?Instructions ?Recorded ?Confirmed ?Last Taken ?Type cholecalciferol (vitamin D3) 50 50 mcg PO DAILY 02/19/24 02/19/24 Unknown History mcg (2,000 unit) capsule Exam Height,Weight and Vital Signs: Height 4 ft 11 in Weight 37.2 kg Last Vital Signs Temp 98.5 F 02/20/24 07:25 Pulse 67 02/20/24 07:25 Resp 16 02/20/24 07:25 BP 106/60 02/20/24 07:25 Pulse Ox 99 02/20/24 07:25 O2 Del Method Room Air 02/20/24 07:25 Pertinent Lab Results Pertinent Lab Results: Laboratory Tests 02/19/24 02/19/24 02/19/24 10:53 13:48 14:30 WBC 17.2 H RBC 4.53 Hgb 14.3 Hct 41.4 MCV 91.4 MCH 31.6 MCHC 34.5 RDW 12.1 Plt Count 319 MPV 9.8 Immature Gran % (Auto) 0.6 H Neut % (Auto) 83.3 H Lymph % (Auto) 12.0 L [place] % (Auto) 3.4 Eos % (Auto) 0.1 Baso % (Auto) 0.6 Lymph # (Auto) 2.1 [place] # (Auto) 0.6 Eos # (Auto) 0.0 Baso # (Auto) 0.1 Abs Immat Gran (auto) 0.11 H Absolute Neuts (auto) 14.3 H Absolute Nucleated RBC 0.000 Nucleated RBC % (auto) 0.0 Sodium 140 Potassium 3.2 L Chloride 107 Carbon Dioxide 20 L Anion Gap 16 BUN 11 Creatinine 0.81 Estim Creat Clear Calc 61.0 Estimated GFR > 60 Random Glucose 126 H Lactic Acid Calcium 10.4 H Magnesium 1.9 Total Bilirubin 1.2 H Direct Bilirubin 0.4 AST 36 H ALT 52 H Alkaline Phosphatase 56 Total Protein 7.8 Albumin 4.9 Lipase 28 Beta HCG, Quant < 2 Urine Color Urine Appearance Urine pH Ur Specific [place] Urine Protein Urine Glucose (UA) Urine Ketones Urine Blood Urine Nitrite Ur Leukocyte Esterase Urine Test NEGATIVE Stool Occult Blood NEGATIVE Urine Opiates Screen POSITIVE H Ur Buprenorphine Scrn Not Detected Ur Oxycodone Screen Not Detected Urine Methadone Screen Not Detected Urine Fentanyl Screen Not Detected Ur Barbiturates Screen Not Detected Ur Phencyclidine Scrn Not Detected Ur Amphetamines Screen Not Detected U Benzodiazepines Scrn Not Detected Urine Cocaine Screen Not Detected U Marijuana (THC) Screen POSITIVE H Ethyl Alcohol < 10 02/19/24 02/19/24 02/20/24 14:32 15:00 10:56 WBC 12.2 H RBC 3.58 L D Hgb 11.7 L Hct 33.4 L MCV 93.3 MCH 32.7 MCHC 35.0 RDW 12.4 Plt Count 219 D MPV 9.7 Immature Gran % (Auto) 0.3 Neut % (Auto) 71.3 Lymph % (Auto) 19.1 L [place] % (Auto) 8.7 Eos % (Auto) 0.1 Baso % (Auto) 0.5 Lymph # (Auto) 2.3 [place] # (Auto) 1.1 Eos # (Auto) 0.0 Baso # (Auto) 0.1 Abs Immat Gran (auto) 0.04 H Absolute Neuts (auto) 8.7 H Absolute Nucleated RBC 0.000 Nucleated RBC % (auto) 0.0 Sodium 140 Potassium 3.6 Chloride 110 H Carbon Dioxide 22 Anion Gap 12 BUN 8 L Creatinine 0.74 Estim Creat Clear Calc 66.8 Estimated GFR > 60 Random Glucose 76 Lactic Acid 1.7 Calcium 8.8 D Magnesium Total Bilirubin 2.3 H Direct Bilirubin AST 29 ALT 42 H Alkaline Phosphatase 38 L Total Protein 5.7 L Albumin 3.6 Lipase Beta HCG, Quant Urine Color Yellow Urine Appearance Clear Urine pH 8.0 Ur Specific [place] >= 1.030 H Urine Protein Negative Urine Glucose (UA) Negative Urine Ketones 40 Urine Blood Negative Urine Nitrite Negative Ur Leukocyte Esterase Negative Urine Test Stool Occult Blood Urine Opiates Screen Ur Buprenorphine Scrn Ur Oxycodone Screen Urine Methadone Screen Urine Fentanyl Screen Ur Barbiturates Screen Ur Phencyclidine Scrn Ur Amphetamines Screen U Benzodiazepines Scrn Urine Cocaine Screen U Marijuana (THC) Screen Ethyl Alcohol Airway Mallampati Class: I TM Dist: >3cm Neck ROM: Full Loose/Missing/Broken Teeth: No Heart: RRR Lungs: CTA Assessment and Plan Assessment Anesthesia Assessment: Anesthesia Plan Discussed and Chart Reviewed Final Anesthetic Review Family History of Problems with Anesthesia: No History of Problems with Anesthesia: No NPO: Yes ASA Class: I Final Preanesthetic Review: No Changes in Pt Med Stat, Meds/Allgs Chart Reviewed, Consent Obtained/Reviewed and Anes Risks/Benef Reviewed Patient Risk: Low Procedure Risk: Intermediate Anesthetic Plan Anesthetic Plan: GA Disposition: Standard PACU
[2024-02-20] MEDS: oxyCODONE HCl Immed Release 5 MG TABLET PO ×2 (16:38→20:03)
[2024-02-20] MEDS: oxyCODONE HCl Immed Release 5 MG TABLET 10 MG PO (18:58)
--- NOTE | 2024-02-24 09:04 | W.PM.OPN ---
Operative Note Operative Note Date of Service: 02/20/24 Narrative: Preop diagnosis--acute cholecystitis Postop diagnosis--acute acalculous cholecystitis Procedure--laparoscopic cholecystectomy Surgeon--[place] Anesthesia--general endotracheal tube anesthesia The patient is a 28-year-old female presented to the emergency room with the 18 hour history of epigastric pain that was extremely severe causing nausea and vomiting and radiating to her back. Workup here revealed elevated white count ultrasound showing thickening of the gallbladder wall with pericholecystic fluid and positive Sanz sign. As a result she comes in for laparoscopic cholecystectomy. Findings--mildly acute inflamed gallbladder Procedure--patient was brought to the operative room under Anesthesia guidance was intubated. She had compression stockings placed before induction received preoperative antibiotics for her cholecystitis. An infraumbilical incision was created after numbing of the area with a 0.25% Marcaine after her abdomen was prepped and draped in standard surgical fashion. Dissection was carried down to the anterior abdominal wall fascia which was opened up a 0 Vicryl pursestring suture placed the [place] trocar introduced. Pneumoperitoneum was established to 15 mmHg pressure. Patient was positioned head up left side down and then 3 5 mm ports were then placed under direct visualization using local. The gallbladder was noted in the right upper quadrant and was retracted superiorly and laterally in the triangle of Calot structures dissected out. The cystic duct cystic artery were identified with a posterior branch noted of the cystic artery as well. Clips were placed to down and 1 up on the cystic duct and this was transected also on the cystic artery and its branch these were clipped and then the hook cautery was used to remove the gallbladder intact. The gallbladder was then placed in Endo-Catch bag and then removed from the infraumbilical port site again. Pneumoperitoneum was then reestablished in the liver bed was cauterized good hemostasis was achieved and the cystic duct stump and artery clips noted to be in proper place. Ports were then removed under direct visualization. At the end of the case all sponge instrument needle counts were correct estimated blood loss was about 10 cc specimens was gallbladder. Patient was extubated returned stable to recovery room
--- NOTE | 2024-03-01 09:54 | PM.DS ---
DS: Providers Provider Date of Service: 02/20/24 Date of admission: 02/19/24 19:03 Date of discharge: 02/20/24 Primary care physician: Tylor Physician Attending physician on admission: Shelbi Moore Attending physician on discharge: Shelbi Moore DS: Diagnosis Discharge Diagnosis (1) Acute acalculous cholecystitis: Status: Acute DS: Summary Hospital Course Hospital Course: HPI AT ADMISSION: Ruba De La Cruz is a 28 year old female who comes into the emergency room complaining of epigastric pain severe and nausea and vomiting. She has never had pain like this before. Here in the emergency room she was noted to have right upper quadrant tenderness and ultrasound and a CT scan was carried out which shows thickening of the gallbladder wall some pericholecystic fluid [place] [address] and some LFTs are slightly elevated. No stones are noted however gall bladder polyps are seen. She denies any family history of gallbladder disease that she is aware of. She denies eating anything unusual and no other sick contacts. HOSPITAL COURSE: The patient was admitted to the surgical service for further treatment of the abdominal pain, likely with acalculous cholecystitis. She was started on IV antibiotics with plan to reevaluate in the morning. She understands and agreed with the plan. She had continued epigastric pain and wanted to proceed with laparoscopic cholecystectomy, possible open. She was added onto the OR schedule for that day. On 02/20/24, a laparoscopic cholecystectomy was performed by Dr. Moore without complication. The patient tolerated the procedure well. She had an uncomplicated recovery course. Later that day she felt well and was tolerating a diet without nausea or vomiting, had good pain control and was ambulating without difficulty. She was hemodynamically stable. Her abdomen was benign with appropriate post op tenderness and clean and intact dressings. She felt ready for discharge. She was discharged to home on 02/20/24 in stable condition. She is to follow up in the office in 1 week. Status at Discharge Functional status at discharge: independent ambulation Overall status at discharge: patient is progressing back to baseline Time Attestation Discharge Coordination Time (in mins): 30 Quality: Safe Use of Opioids Does Pt have an Active Cancer Diagnosis on the Problem List?: No Quality: Stroke Does the patient have a stroke diagnosis?: No Physical Exam Vital Signs: Vital Signs: Last Vital Signs Temp 97.6 F 02/20/24 19:32 Pulse 72 02/20/24 19:32 Resp 18 02/20/24 19:32 BP 108/71 02/20/24 19:32 Pulse Ox 100 02/20/24 19:32 O2 Del Method Room Air 02/20/24 19:32 O2 Flow Rate 6 02/20/24 16:10 BMI result Body Mass Index 16.6 Const: General: comfortable, no acute distress and alert GI: Inspection: No distended and Yes incision (intact) Palpation (GI): Soft to palpation and no guarding DS: Data Data Completed and Pending Completed studies during hospitalization [Text1]: 02/20/24 15:42 Surgical [PTH] Routine Gallbladder, cholecystectomy: Chronic cholecystitis Procedures Resection of Gallbladder, Percutaneous Endoscopic Approach (02/19/24) Discharge Plan Discharge Anticipated Discharge Date/Time: 02/20/24 19:00 Patient Disposition: Home, Self-Care Discharge Diagnosis: acute cholecystitis Referrals: Physician,None [Primary Care Provider] - 1 Week Discharge Medications: Continued cholecalciferol (vitamin D3) 50 mcg (2,000 unit) Capsule 50 mcg PO DAILY Discharge Orders: Discharge Order (Routine); Ordered 02/20/24 Ordered By: Shelbi Moore Diet: Low fat, low cholesterol Activity on Discharge: Slow increase activity; no lifting more than 10lb Stand Alone Forms: Patient Portal Discharge page Print Language: Greenlandic Care Plan Goals: slow increase activity and low fat diet no lifting more than 10 lbs Health Concerns: fever chills or excessive vomitting drainage from incision Plan of Treatment: slow increase activity but not more than 10lb lifting call general surgery office to be seen later this week in the office Assessment: doing well s/p lap elliot and will be dc home amaris clear liquids and po pain meds and ambulating Discharge Date/Time: 02/20/24 20:10
== END 2024-02-20 20:10 | disposition home or self-care (01) | DRG 419 ==
LOC: HO.ED 18:53 → HO.EDOVER 19:32 → HO.S3 02-20 11:05
PROVIDERS: Physician Assistant; Admitting Provider Surgery; Emergency Provider Emergency Medicine; Visit Provider Surgery
PROC: 0FT44ZZ Resection of Gallbladder, Percutaneous Endoscopic Approach (ICD-10-PCS; CPT 47562; principal; 2024-02-20 14:00)
DX: K81.0 Acute cholecystitis (principal); Z87.891 Personal history of nicotine dependence
CPT/HCPCS: 47562; 36415; 74177; 76705; 80053; 80307; 81003; 81025; 82248; 82272; 83605; 83690; 83735; 84702; 85025; 87040; 88304; 99221; 99285; J1100; J1885; J2270; J2405; J2543; J2704; J2765; J3010; J7120; Q9967

== ENCOUNTER → 2024-02-19 19:03 | Outpatient (BNV) | payer OTHER, SELFPAY | PROVIDERS: Admitting Provider Surgery; Emergency Provider Emergency Medicine; Visit Provider Surgery | DX: K81.0 Acute cholecystitis (principal) | CPT/HCPCS: 47562; 99024; 99223 ==

== ENCOUNTER 2024-02-28 13:33 | Outpatient (AMB) | payer OTHER, SELFPAY ==
--- NOTE | 2024-02-28 13:37 | A.OFFVIS_ITS ---
Vital Signs 02/28/24 13:42 Height 4 ft 11.75 in Weight 80 lb 8 oz BMI 15.9 BP 103/68 Blood Pressure Location Lt brachial Position Sitting Pulse 91 Intake Visit Reasons: s/p lap cholecystectomy Intake Note: Patient is seen in office for post op assessment post laparoscopic cholecystectomy. 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 All in all, uneventful postoperative course. Wednesday she had some indigestion/vomiting but that has since resolved. She is otherwise doing well. Increasing her activity level. [facility] Surgical History (Updated 02/28/24 @ 13:50 by Yg Alvares MD) Hx laparoscopic cholecystectomy (02/24/24) Social History Household Members: Spouse Housing: House Do you presently have visiting nurse or other home services: No Patient Tobacco Use Status: Former Tobacco user Substance Use Type: Marijuana service: No Physical Exam Vital Signs: Last Vital Signs Pulse 91 02/28/24 13:42 BP 103/68 02/28/24 13:42 BMI result Body Mass Index 15.9 Eyes Other: Anicteric GI Other: Very thin female. Abdomen is soft. All wounds clean dry and intact healing uneventfully Assessment & Plan Assessment & Plan (1) Status post laparoscopic cholecystectomy: Code(s): Z90.49 - Acquired absence of other specified parts of digestive tract Category: Surgical Plan Patient has been given local instructions, a note to resume work in 1 week's time with 2 weeks light duty, and will otherwise follow-up p.r.n.. All questions answered. Medications: Discontinued oxycodone Partial Fill upon patient request. Discontinued Reason: Patient Completed Course 5 mg PO Q4H PRN 20 tabs 0RF Pain, Moderate(Pain Scale 4-6) oxycodone Partial Fill upon patient request. Discontinued Reason: Patient Completed Course 5 mg PO Q4H PRN 20 tabs 0RF pain Coding Level of Care Code Global (68812) Diagnoses Status post laparoscopic cholecystectomy Z90.49
[2024-02-28 13:42] VITALS: BP 103/68; PULSE 91; BMI 15.9
== END 2024-02-28 13:53 | disposition home or self-care (01) ==
PROVIDERS: Visit Provider Surgery
DX: Z90.49 Acquired absence of other specified parts of digestive tract (principal)
CPT/HCPCS: 99024

== ENCOUNTER → 2024-02-28 13:33 | Outpatient (BNVA) | payer OTHER, SELFPAY | PROVIDERS: Visit Provider Surgery ==